=== PATIENT | male | born 1985 | race American Indian/Alaskan Native ===

== ENCOUNTER 2017-02-26 01:24 | Emergency (ER) | payer SELFPAY ==
[2017-02-26 01:30] VITALS: BP 122/74; PULSE 98; RESP 18; TEMP 98.1; O2SAT 99
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
--- NOTE | 2017-02-26 02:04 | CT ---
EXAM: CT Head Without Intravenous Contrast CLINICAL HISTORY: 31 years old, male; Injury or trauma; Fall; Initial encounter; Laceration; Without residual foreign body; Head, generalized TECHNIQUE: Axial computed tomography images of the head/brain without intravenous contrast. All CT scans at this facility use one or more dose reduction techniques, viz.: automated exposure control; ma/kV adjustment per patient size (including targeted exams where dose is matched to indication; i.e. head); or iterative reconstruction technique. COMPARISON: No relevant prior studies available. FINDINGS: Brain: No intracranial hemorrhage. No mass. No edema. Ventricles: No hydrocephalus. Bones/joints: No acute fracture. Soft tissues: Minimal soft tissue swelling. Sinuses: Scattered minimal to mild mucosal thickening. Mastoid air cells: No mastoid effusion. Orbits: Unremarkable as visualized. IMPRESSION: 1. No intracranial hemorrhage. 2. Incidental/non-acute findings are described above.
== END 2017-02-26 02:48 | disposition home or self-care (01) ==
LOC: ED 01:24
DX: S01.01XA Laceration without foreign body of scalp, initial encounter (principal); S01.81XA Laceration without foreign body of other part of head, initial encounter; Y08.02XA Assault by strike by baseball bat, initial encounter; Y93.9 Activity, unspecified; Y92.9 Unspecified place or not applicable

== ENCOUNTER 2017-03-07 12:54 | Emergency (ER) | payer SELFPAY ==
[2017-03-07 13:20] VITALS: BP 114/71; PULSE 74; RESP 18; TEMP 98.8; O2SAT 100
--- NOTE | 2017-03-07 13:20 | ED PDOC ---
Arrival/HPI - General Time Seen by Provider: 03/07/17 12:54 Historian: Patient - History of Present Illness Narrative History of Present Illness (Text): 03/07/17 13:20 A 31 year old male, with no significant past medical history, presents to the emergency department for staple removal. Patient has 3 lanette to the scalp. No other complaints at this time. No PMD Past Medical History - Provider Review Nursing Documentation Reviewed: Yes - Psychiatric Hx Substance Use: No Family/Social History - Physician Review Nursing Documentation Reviewed: Yes Family/Social History: No Known Family HX Smoking Status: n Hx Alcohol Use: No Hx Substance Use: No Allergies/Home Meds Allergies/Adverse Reactions: Allergies No Known Allergies Allergy (Verified 02/26/17 01:29) Home Medications: Home Meds Medication Instructions Recorded Confirmed No Known Home Med 02/26/17 03/07/17 Review of Systems - Physician Review All systems were reviewed & negative as marked: Yes - Review of Systems Constitutional: absent: Fevers Respiratory: absent: SOB Physical Exam Vital Signs Reviewed: Yes Vital Signs Temp Pulse Resp BP Pulse Ox 03/07/17 13:02 98.8 F 74 18 114/71 100 Temperature: Afebrile Blood Pressure: Normal Pulse: Regular Respiratory Rate: Normal Appearance: Positive for: Well-Appearing Pain Distress: None Mental Status: Positive for: Alert and Oriented X 3 - Systems Exam Head: Present: Other (laceration 3 lanette to scalp to be removed today) Pupils: Present: PERRL Extroacular Muscles: Present: EOMI Conjunctiva: Present: Normal Mouth: Present: Moist Mucous Membranes Neck: Present: Normal Range of Motion Respiratory/Chest: Present: Clear to Auscultation, Good Air Exchange. No: Respiratory Distress, Accessory Muscle Use Cardiovascular: Present: Regular Rate and Rhythm, Normal S1, S2. No: Murmurs Abdomen: Present: Normal Bowel Sounds. No: Tenderness, Distention, Peritoneal Signs Back: Present: Normal Inspection Upper Extremity: Present: Normal Inspection. No: Cyanosis, Edema Lower Extremity: Present: Normal Inspection. No: Edema Neurological: Present: GCS=15, CN II-XII Intact, Speech Normal Skin: Present: Warm, Dry, Normal Color. No: Rashes Psychiatric: Present: Alert, Oriented x 3, Normal Insight, Normal Concentration Medical Decision Making ED Course and Treatment: 03/07/17 13:22 Impression: 31 year old male for lanette removal. Plan: -- Reassess and disposition Prior Visits: Notes and results from previous visits were reviewed. Patient was last seen in the emergency department on 02/26/2017 for post head injury. Patient was discharged home. Progress Notes: - Scribe Statement The provider has reviewed the documentation as recorded by the Rodríguez Goldberg Provider Scribe Attestation: All medical record entries made by the Joseeibmilagros were at my direction and personally dictated by me. I have reviewed the chart and agree that the record accurately reflects my personal performance of the history, physical exam, medical decision making, and the department course for this patient. I have also personally directed, reviewed, and agree with the discharge instructions and disposition. Disposition/Present on Arrival - Present on Arrival Any Indicators Present on Arrival: No History of DVT/PE: No History of Uncontrolled Diabetes: No Urinary Catheter: No History Surgical Site Infection Following: None - Disposition Have Diagnosis and Disposition been Completed?: Yes Diagnosis: Removal of staple Disposition: HOME/ ROUTINE Disposition Time: 01:00 Condition: STABLE Discharge Instructions (ExitCare): Staple Care (ED) Additional Instructions: return to er with worsening symptoms or concerns. Referrals: PCP,NO [Primary Care Provider] - Follow up with primary Forms: RUN (Ukrainian)
== END 2017-03-07 13:34 | disposition home or self-care (01) ==
LOC: ED 12:54
DX: Z48.02 Encounter for removal of sutures (principal)